=== PATIENT | male | born 1995 | race Caucasian/White ===

== ENCOUNTER 2017-07-13 07:18 | Emergency (ER) | payer OTHER ==
[2017-07-13 07:29] VITALS: BP 120/70
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
--- NOTE | 2017-07-13 08:13 | XRAY Preliminary Report ---
Exam: XR KNEE 4 VIEW RT IMPRESSION: No evidence for acute osseous injury right knee. Small joint effusion. [facility] SITE ID: [id number]
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
== END 2017-07-13 09:07 | disposition home or self-care (01) ==
LOC: ED 07:18
DX: S60.511A Abrasion of right hand, initial encounter (principal); S80.211A Abrasion, right knee, initial encounter; M25.461 Effusion, right knee; V28.0XXA Motorcycle driver injured in noncollision transport accident in nontraffic accident, initial encounter; Y92.481 Parking lot as the place of occurrence of the external cause
CPT/HCPCS: 99282